=== PATIENT | male | born 1940 | race Caucasian/White ===

== ENCOUNTER 2018-09-27 09:42 | Emergency (ER) | payer MEDICARE, OTHER, SELFPAY ==
--- NOTE | 2018-09-27 09:44 | ED.GENADULT ---
HPI - General Adult General Chief complaint: Upper Respiratory Symptoms Stated complaint: ACHEY,FEVER Time Seen by Provider: 09/27/18 09:43 Source: patient Mode of arrival: ambulatory Limitations: no limitations History of Present Illness HPI narrative: [age] year male here for evaluation of 3-4 days of body aches and fevers. Denies any cough. No rashes. He did get his flu shot last . He is a insulin-dependent type 2 diabetic and states that his blood sugars have been a little more elevated (170s) over the past couple days. He states he is taking Tylenol at home which does bring his temperature down but it comes back up again. He states he did have shakes on Thursday. No headache. No abdominal pain. No urinary symptoms. No history of urinary tract infection. States he does get bronchitis on a regular basis. Related Data Home Medications Medication Instructions Recorded Confirmed fexofenadine 180 mg PO Q DAY #0 12/08/12 09/27/18 losartan 100 mg PO QDAY #0 12/08/12 09/27/18 simvastatin [Zocor] 40 mg PO HS #0 12/08/12 09/27/18 warfarin [Coumadin] See Label Instructions .ROUTE 12/08/12 09/27/18 .COMPLEX #0 carvedilol 3.125 mg tablet 3.125 mg PO BID 06/11/18 09/27/18 Vitamin D3 1 cap PO DAILY 09/27/18 09/27/18 exenatide microspheres [Bydureon] 1 dose SUBCUT DIRECTED 09/27/18 09/27/18 ezetimibe 1 tab PO DAILY 09/27/18 09/27/18 flaxseed oil 1 cap PO DAILY 09/27/18 09/27/18 hydrochlorothiazide 1 tab PO DAILY 09/27/18 09/27/18 insulin aspart U-100 [Novolog 5 units SUBCUT TID 09/27/18 09/27/18 Flexpen U-100 Insulin] insulin glargine [Lantus Solostar 35 units SUBCUT DAILY 09/27/18 09/27/18 U-100 Insulin] liraglutide [Victoza 3-Amando] 1 dose SUBCUT DIRECTED 09/27/18 09/27/18 metformin 250 mg PO DAILY 09/27/18 09/27/18 minocycline 1 cap PO BID 09/27/18 09/27/18 mupirocin 1 applic TOPICAL DIRECTED 09/27/18 09/27/18 ropinirole 1 tab PO DAILY 09/27/18 09/27/18 sitagliptin-metformin [Janumet] 2 tab PO DAILY 09/27/18 09/27/18 Allergies Allergy/AdvReac Type Severity Reaction Status Date / Time amoxicillin Allergy Severe swelling Verified 09/27/18 09:48 in mouth Review of Systems Constitutional Reports chills, Reports fatigue, Reports fever(s), Denies headache(s) and Reports malaise ENT Ears, Nose, Mouth, and Throat: Denies headache(s) Cardiovascular Denies chest pain and Denies dyspnea Respiratory Denies cough, Denies dyspnea and Denies wheezing Gastrointestinal Gastrointestinal: Denies abdominal pain, Denies nausea and Denies vomiting Genitourinary Denies dysuria Musculoskeletal Denies myalgias and Denies arthralgias Integumentary/Breasts Denies lesions and Denies rash Neurologic Denies headache(s) Endocrine Reports fatigue Hematologic/Lymphatic Denies easy bleeding and Denies easy bruising Allergic/Immunologic Denies urticaria and Denies wheezing [facility] Medical History Diabetes (Acute) Hypertension (Acute) Surgical History History of cholecystectomy (Acute) Social History Smoking Status: Never smoker Exam Initial Vital Signs Initial Vital Signs: Vital Signs Temperature 99.5 F 09/27/18 09:46 Pulse Rate 88 09/27/18 09:46 Respiratory Rate 14 09/27/18 09:46 Blood Pressure 152/78 H 09/27/18 09:46 Pulse Oximetry 99 09/27/18 09:46 Const General: cooperative, healthy appearing, comfortable, well developed, well groomed and No acute distress Orientation: alert, awake and oriented x3 HENMT Head: normal to inspection and normocephalic Ears: right TM abnormal (EAC impacted by cerumen) and TM normal on the left Nose: external nose normal Face and sinus: normal facial exam Mouth: oral mucosae normal Eyes Pupils: PERRL Resp Effort & Inspection: normal respiratory effort Auscultation: clear to auscultation bilaterally Cardio Rate: regular rate Rhythm: regular rhythm Pulses: radial pulses present GI Inspection: non-distended Palpation: soft, No firm and No tender Skin Lesions: no lesions Rashes: other (Patient with a fine red rash on his upper chest and back) Neuro General: alert, awake and oriented x3 Cognition: normal cognition Speech: speech normal Extrem General: normal to inspection and capillary refill normal Psych Appearance: grossly normal and well kempt Course Orders Ordered: ED Orders 09/27/18 10:00 FLU A and B [Influenza A and B by PCR Rapid] Stat Vital Signs - 8 hr 09/27/18 09:46 Temperature 99.5 F Pulse Rate 88 Respiratory Rate 14 Blood Pressure 152/78 H Pulse Oximetry 99 Medical Decision Making Lab Data Lab results reviewed: Yes I reviewed the patient's lab results. Lab Results 09/27/18 Range/Units 10:00 Influenza A & B (PCR) Negative (Negative) MDM Narrative Medical decision making narrative: Patient has clear lung exam today no cough. Will hold on a chest x-ray as I felt that clinically of pneumonia is unlikely. His flu was negative. He has no abdominal pain concern for intra-abdominal pathology. He is a male has never had a history of urinary tract infections and does not have any dysuria so I feel UTI is on likely. He has no findings on his skin exam concerning for cellulitis. Has no other symptoms concerning for meningitis. I do suspect that this is a viral illness. I discussed with him the use of antipyretics to include acetaminophen/Motrin. Patient was given return precautions. He expressed understanding and agreement with plan. Discharge Plan Departure Patient Disposition: Home Clinical Impression: Fever Instructions: DI for Fever (Symptom) -- Adult, Acetaminophen Activity Restrictions/Additional Instructions: Continue to take the acetaminophen/Tylenol and/or Motrin/ibuprofen like we discussed. Increase your fluid intake. Continue all of your medications as directed. Return to the emergency department for any new or worsening symptoms Prescriptions: No Action carvedilol 3.125 mg tablet 3.125 mg PO BID RF: 0 warfarin [Coumadin] 5 MG tablet See Label Instructions .ROUTE .COMPLEX Qty: 0 RF: 0 simvastatin [Zocor] 40 MG tablet 40 mg PO HS Qty: 0 RF: 0 losartan 50 MG tablet 100 mg PO QDAY Qty: 0 RF: 0 fexofenadine 180 MG tablet 180 mg PO Q DAY Qty: 0 RF: 0 hydrochlorothiazide 25 mg tablet 1 tab PO DAILY RF: 0 ezetimibe 10 mg tablet 1 tab PO DAILY RF: 0 insulin glargine [Lantus Solostar U-100 Insulin] 100 unit/mL (3 mL) insulin pen 35 units subcut DAILY RF: 0 liraglutide [Victoza 3-Amando] 0.6 mg/0.1 mL (18 mg/3 mL) pen injector 1 dose subcut DIRECTED RF: 0 metformin 500 mg tablet 250 mg PO DAILY RF: 0 minocycline 100 mg capsule 1 cap PO BID RF: 0 ropinirole 0.25 mg tablet 1 tab PO DAILY RF: 0 mupirocin 2 % ointment 1 applic Topical DIRECTED RF: 0 sitagliptin-metformin [Janumet] 50-500 mg tablet 2 tab PO DAILY RF: 0 insulin aspart U-100 [Novolog Flexpen U-100 Insulin] 100 unit/mL Insulin Pen 5 units subcut TID RF: 0 flaxseed oil 1,000 mg Capsule 1 cap PO DAILY RF: 0 exenatide microspheres [Bydureon] 2 mg Suspension,Extended Rel Recon 1 dose subcut DIRECTED RF: 0 Vitamin D3 1 cap PO DAILY RF: 0
[2018-09-27 09:46] VITALS: BP 152/78; PULSE 88; RESP 14; TEMP 37.5; O2SAT 99
--- NOTE | 2018-09-27 10:04 | PC.NURSE ---
pt reports, left arm , s/p flu 6 days ago, developed fever for the last 3 days, had tylenol scow captain 1 hour ago. on arrival denies any discomfort, denies chest pain,shortness of breath, uri sxs, utis sxs. here due to fever and during the exam, noted red rash neck,shoulder,back,abdomin. denies pruritus. skin diaphoretic. left arm injection sites wnl.
[2018-09-27 10:28] LABS: Influenza A and B by PCR Rapid Negative (Negative)
[2018-09-27 10:56] VITALS: BP 124/76; PULSE 85; RESP 18
== END 2018-09-27 10:57 | disposition home or self-care (01) ==
PROVIDERS: Emergency Provider Emergency Medicine; Family Provider Internal Medicine; PCP Internal Medicine
DX: R50.9 Fever, unspecified (principal)
CPT/HCPCS: 87400; 99282; 99283

== ENCOUNTER → 2022-09-15 10:09 | Outpatient (CLI) | payer MEDICARE, OTHER, SELFPAY | PROVIDERS: Family Provider Internal Medicine; PCP Internal Medicine; Referring Provider Podiatrist; Visit Provider Family Medicine | DX: E11.621 Type 2 diabetes mellitus with foot ulcer (principal); L08.9 Local infection of the skin and subcutaneous tissue, unspecified; L97.514 Non-pressure chronic ulcer of other part of right foot with necrosis of bone; M86.171 Other acute osteomyelitis, right ankle and foot; E11.40 Type 2 diabetes mellitus with diabetic neuropathy, unspecified; E11.51 Type 2 diabetes mellitus with diabetic peripheral angiopathy without gangrene; Z79.01 Long term (current) use of anticoagulants; Z79.2 Long term (current) use of antibiotics; Z79.84 Long term (current) use of oral hypoglycemic drugs | CPT/HCPCS: 11044; 36415; 80053; 85025; 85651; 86140; 87070; 87075; 87205; 99204; 99214 ==

== ENCOUNTER → 2022-09-15 11:55 | Outpatient (CLI) | payer MEDICARE, OTHER, SELFPAY ==
[2022-09-15 13:18] LABS: Add Manual Diff / Slide Review NO; Basophils Absolute Auto 100 /uL (0-100); Basophils Percent Auto 0.5 % (0-2); Eosinophils Absolute Auto 200 /uL (0-450); Hematocrit 44.6 % (41-53); Hemoglobin 14.8 g/dL (13.5-17.5); Lymphocytes Absolute Auto 1900 /uL (1100-4500); Lymphocytes Percent Auto 19.9 % (25-40); Mean Corpuscular HGB Conc 33.3 % (30-36); Mean Corpuscular Hemoglobin 31.1 PG (26-34); Mean Corpuscular Volume 93.3 fL (80-100); Monocytes Absolute Auto 1000 /uL (0-900); Monocytes Percent Auto 10.4 % (3-14); Neutrophils Absolute Auto 6400 /uL (1500-7000); Neutrophils Percent Auto 67.2 % (50-75); Platelet Count 234 X10^3/uL (150-400); Red Blood Cell Count 4.78 X10^6/uL (4.5-5.9); White Blood Cell Count 9.5 X10^3/uL (4.5-11.0)
[2022-09-15 13:34] LABS: Erythrocyte Sedimentation Rate 31 MM/HR (0-15)
[2022-09-15 14:01] LABS: Alanine Aminotransferase 61 IU/L (<50); Albumin 3.8 g/dL (3.5-5.0); Albumin Globulin Ratio 1.1 (1.0-2.8); Alkaline Phosphatase 77 U/L (38-126); Aspartate Aminotransferase 49 IU/L (17-59); Bilirubin Total 1.2 mg/dL (0.2-1.3); Blood Urea Nitrogen 19 mg/dL (9-20); C-Reactive Protein Quant 0.7 mg/dL (<1.0); Calcium 9.1 mg/dL (8.4-10.2); Carbon Dioxide 26 mmol/L (22-32); Chloride 101 mmol/L (98-107); Estimated Glomerular Filt Rate > 60 mL/min (>60); Globulin 3.6 g/dL (1.7-4.1); Glucose 121 mg/dL (80-110); HEMOLYSIS < 15 (0-50); Potassium 4.5 mmol/L (3.4-5.1); Sodium 137 mmol/L (137-145); Total Protein 7.4 g/dL (6.3-8.2)
== END ==
PROVIDERS: Family Provider Internal Medicine; PCP Internal Medicine; Referring Provider Family Medicine; Visit Provider Family Medicine
DX: E11.621 Type 2 diabetes mellitus with foot ulcer (principal); L08.9 Local infection of the skin and subcutaneous tissue, unspecified
CPT/HCPCS: 36415; 80053; 85025; 85651; 86140; 87070; 87075; 87205

== ENCOUNTER → 2022-09-22 09:10 | Outpatient (CLI) | payer MEDICARE, OTHER, SELFPAY | PROVIDERS: Family Provider Internal Medicine; PCP Internal Medicine; Referring Provider Podiatrist; Visit Provider Family Medicine | DX: E11.621 Type 2 diabetes mellitus with foot ulcer (principal); L97.514 Non-pressure chronic ulcer of other part of right foot with necrosis of bone; M86.171 Other acute osteomyelitis, right ankle and foot; E11.40 Type 2 diabetes mellitus with diabetic neuropathy, unspecified; Z79.01 Long term (current) use of anticoagulants; Z79.2 Long term (current) use of antibiotics | CPT/HCPCS: 11042; 99214 ==

== ENCOUNTER → 2022-09-29 09:28 | Outpatient (CLI) | payer MEDICARE, OTHER, SELFPAY | PROVIDERS: Family Provider Internal Medicine; PCP Internal Medicine; Referring Provider Podiatrist; Visit Provider Family Medicine | DX: E11.621 Type 2 diabetes mellitus with foot ulcer (principal); L97.516 Non-pressure chronic ulcer of other part of right foot with bone involvement without evidence of necrosis; E11.40 Type 2 diabetes mellitus with diabetic neuropathy, unspecified; Z79.01 Long term (current) use of anticoagulants; Z79.2 Long term (current) use of antibiotics | CPT/HCPCS: 11042; 99214 ==

== ENCOUNTER → 2022-10-08 14:20 | Outpatient (CLI) | payer MEDICARE, OTHER, SELFPAY | PROVIDERS: Family Provider Internal Medicine; PCP Internal Medicine; Referring Provider Internal Medicine; Visit Provider Family Medicine | DX: E11.621 Type 2 diabetes mellitus with foot ulcer (principal); L08.9 Local infection of the skin and subcutaneous tissue, unspecified; L97.514 Non-pressure chronic ulcer of other part of right foot with necrosis of bone; M86.171 Other acute osteomyelitis, right ankle and foot; Z79.01 Long term (current) use of anticoagulants; Z79.2 Long term (current) use of antibiotics | CPT/HCPCS: 11044; 36415; 80053; 85025; 85651; 86140; 87070; 87075; 87077; 87147; 87176; 87186; 87205; 99214 ==

== ENCOUNTER → 2022-10-08 15:55 | Outpatient (CLI) | payer MEDICARE, OTHER, SELFPAY ==
[2022-10-08 16:46] LABS: Add Manual Diff / Slide Review NO; Basophils Absolute Auto 100 /uL (0-100); Basophils Percent Auto 0.6 % (0-2); Eosinophils Absolute Auto 200 /uL (0-450); Eosinophils Percent Auto 2.1 % (2-4); Hematocrit 44.9 % (41-53); Hemoglobin 15.4 g/dL (13.5-17.5); Lymphocytes Absolute Auto 2200 /uL (1100-4500); Mean Corpuscular HGB Conc 34.2 % (30-36); Mean Corpuscular Hemoglobin 31.7 PG (26-34); Mean Corpuscular Volume 92.6 fL (80-100); Monocytes Absolute Auto 1200 /uL (0-900); Monocytes Percent Auto 12.5 % (3-14); Neutrophils Absolute Auto 6000 /uL (1500-7000); Neutrophils Percent Auto 61.8 % (50-75); Platelet Count 209 X10^3/uL (150-400); Red Blood Cell Count 4.85 X10^6/uL (4.5-5.9); White Blood Cell Count 9.6 X10^3/uL (4.5-11.0)
[2022-10-08 17:05] LABS: Alanine Aminotransferase 31 IU/L (<50); Albumin 4.1 g/dL (3.5-5.0); Albumin Globulin Ratio 1.1 (1.0-2.8); Alkaline Phosphatase 67 U/L (38-126); Aspartate Aminotransferase 31 IU/L (17-59); BUN Creatinine Ratio 25.9 (6-22); Bilirubin Total 1.5 mg/dL (0.2-1.3); Blood Urea Nitrogen 36 mg/dL (9-20); C-Reactive Protein Quant < 0.5 mg/dL (<1.0); Calcium 9.2 mg/dL (8.4-10.2); Carbon Dioxide 28 mmol/L (22-32); Chloride 105 mmol/L (98-107); Estimated Glomerular Filt Rate 51 mL/min (>60); Globulin 3.8 g/dL (1.7-4.1); Glucose 106 mg/dL (80-110); HEMOLYSIS < 15 (0-50); Potassium 4.6 mmol/L (3.4-5.1); Sodium 140 mmol/L (137-145); Total Protein 7.9 g/dL (6.3-8.2)
[2022-10-08 17:48] LABS: Erythrocyte Sedimentation Rate 36 MM/HR (0-15)
== END ==
PROVIDERS: Family Provider Internal Medicine; PCP Internal Medicine; Referring Provider Family Medicine; Visit Provider Family Medicine
DX: E11.621 Type 2 diabetes mellitus with foot ulcer (principal); L08.9 Local infection of the skin and subcutaneous tissue, unspecified
CPT/HCPCS: 36415; 80053; 85025; 85651; 86140

== ENCOUNTER → 2022-10-13 09:12 | Outpatient (CLI) | payer MEDICARE, OTHER, SELFPAY | PROVIDERS: Family Provider Internal Medicine; PCP Internal Medicine; Referring Provider Podiatrist; Visit Provider Plastic Surgery | DX: E11.621 Type 2 diabetes mellitus with foot ulcer (principal); L97.514 Non-pressure chronic ulcer of other part of right foot with necrosis of bone; E11.40 Type 2 diabetes mellitus with diabetic neuropathy, unspecified; M86.171 Other acute osteomyelitis, right ankle and foot; Z79.01 Long term (current) use of anticoagulants; Z79.2 Long term (current) use of antibiotics | CPT/HCPCS: 11042 ==

== ENCOUNTER → 2022-10-14 09:08 | Outpatient (CLI) | payer MEDICARE, OTHER, SELFPAY ==
--- NOTE | 2022-10-14 09:09 | DI.MRI.S_ITS ---
PROCEDURE: MR FOOT RT WO/W CON INDICATIONS: Evaluate for osteomyelitis of right 3rd toe TECHNIQUE: Noncontrast coronal T1 spin echo and STIR, sagittal T1 spin echo with fat saturation and STIR, axial T1 spin echo and T2 fast spin echo with fat saturation. After the administration of contrast, axial/sagittal/coronal T1 spin echo with fat saturation through the right foot. COMPARISON: None. FINDINGS: Image quality: Excellent. Bones: There is marrow edema involving 3rd distal phalanx with subtle erosive changes involving 3rd distal phalangeal tuft. No definite contrast enhancement is seen in 3rd distal phalanx. No area of abnormal intraosseous enhancement is seen. No other area of marrow edema or bony erosion. No fracture or dislocation. 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 [id number] osteoarthritic changes throughout rest of the midfoot and forefoot are seen. No metatarsal stress fracture. Soft tissues: There is soft tissue swelling and edema surrounding distal portion of 3rd toe all with suggestion of ulceration distally. No discrete drainable abscess collection. Edema is noted in visualized plantar foot muscles without discrete peripherally enhancing intramuscular fluid collection or enhancing mass. Extensor and flexor tendons are grossly intact. IMPRESSION: 1. Suggestion of cellulitis involving distal portion of 3rd toe. No discrete drainable abscess collection. 2. Finding is concerning for osteomyelitis involving 3rd distal phalanx. 3. Osteoarthritic changes throughout midfoot and forefoot most notably at 1st MTP joint with findings concerning for hallux limitus. No acute fracture or dislocation. 4. Suggestion of mild myositis in plantar foot muscles. No intramuscular soft tissue mass or fluid collection. Dictated by: Tonio Acevedo M.D. on 10/14/2022 at 12:23 Approved by: Tonio Acevedo M.D. on 10/14/2022 at 15:20
== END ==
PROVIDERS: Family Provider Internal Medicine; PCP Internal Medicine; Referring Provider Family Medicine; Visit Provider Family Medicine
DX: E11.621 Type 2 diabetes mellitus with foot ulcer (principal); L97.514 Non-pressure chronic ulcer of other part of right foot with necrosis of bone
CPT/HCPCS: 73720; A9579

== ENCOUNTER → 2022-10-20 09:40 | Outpatient (CLI) | payer MEDICARE, OTHER, SELFPAY | PROVIDERS: Family Provider Internal Medicine; PCP Internal Medicine; Referring Provider Internal Medicine; Visit Provider Surgery | DX: E11.621 Type 2 diabetes mellitus with foot ulcer (principal); L97.514 Non-pressure chronic ulcer of other part of right foot with necrosis of bone; M86.171 Other acute osteomyelitis, right ankle and foot; Z79.01 Long term (current) use of anticoagulants; E11.40 Type 2 diabetes mellitus with diabetic neuropathy, unspecified | CPT/HCPCS: 97597; 99212; 99213 ==

== ENCOUNTER → 2022-10-22 12:40 | Outpatient (CLI) | payer MEDICARE, OTHER, SELFPAY | PROVIDERS: Family Provider Internal Medicine; PCP Internal Medicine; Referring Provider Internal Medicine; Visit Provider Surgery | DX: E11.621 Type 2 diabetes mellitus with foot ulcer (principal); L97.514 Non-pressure chronic ulcer of other part of right foot with necrosis of bone; R60.0 Localized edema; L53.9 Erythematous condition, unspecified | CPT/HCPCS: 99212 ==

== ENCOUNTER → 2022-10-27 09:33 | Outpatient (CLI) | payer MEDICARE, OTHER, SELFPAY | PROVIDERS: Family Provider Internal Medicine; PCP Internal Medicine; Referring Provider Podiatrist; Visit Provider Surgery | DX: E11.621 Type 2 diabetes mellitus with foot ulcer (principal); L97.514 Non-pressure chronic ulcer of other part of right foot with necrosis of bone; M86.171 Other acute osteomyelitis, right ankle and foot; E11.40 Type 2 diabetes mellitus with diabetic neuropathy, unspecified; R60.0 Localized edema; L53.9 Erythematous condition, unspecified; Z79.01 Long term (current) use of anticoagulants; Z79.2 Long term (current) use of antibiotics | CPT/HCPCS: 99213 ==

== ENCOUNTER → 2022-10-30 09:31 | Outpatient (CLI) | payer MEDICARE, OTHER, SELFPAY | PROVIDERS: Family Provider Internal Medicine; PCP Internal Medicine; Referring Provider Podiatrist; Visit Provider Surgery | DX: E11.621 Type 2 diabetes mellitus with foot ulcer (principal); L97.514 Non-pressure chronic ulcer of other part of right foot with necrosis of bone; R60.0 Localized edema; L53.9 Erythematous condition, unspecified | CPT/HCPCS: 99213 ==

== ENCOUNTER → 2022-11-03 11:23 | Outpatient (CLI) | payer MEDICARE, OTHER, SELFPAY | PROVIDERS: Family Provider Internal Medicine; PCP Internal Medicine; Referring Provider Podiatrist; Visit Provider Surgery | DX: E11.621 Type 2 diabetes mellitus with foot ulcer (principal); L97.514 Non-pressure chronic ulcer of other part of right foot with necrosis of bone; M86.171 Other acute osteomyelitis, right ankle and foot; E11.40 Type 2 diabetes mellitus with diabetic neuropathy, unspecified; R60.0 Localized edema; R21 Rash and other nonspecific skin eruption; Z79.01 Long term (current) use of anticoagulants; Z79.2 Long term (current) use of antibiotics; L53.9 Erythematous condition, unspecified | CPT/HCPCS: 99213 ==

== ENCOUNTER → 2022-11-06 09:13 | Outpatient (CLI) | payer MEDICARE, OTHER, SELFPAY | PROVIDERS: Family Provider Internal Medicine; PCP Internal Medicine; Referring Provider Podiatrist; Visit Provider Surgery | DX: E11.621 Type 2 diabetes mellitus with foot ulcer (principal); L97.514 Non-pressure chronic ulcer of other part of right foot with necrosis of bone; R60.0 Localized edema; L53.9 Erythematous condition, unspecified | CPT/HCPCS: 99213 ==

== ENCOUNTER → 2022-11-10 11:19 | Outpatient (CLI) | payer MEDICARE, OTHER, SELFPAY | PROVIDERS: Family Provider Internal Medicine; PCP Internal Medicine; Referring Provider Podiatrist; Visit Provider Surgery | DX: E11.621 Type 2 diabetes mellitus with foot ulcer (principal); L97.514 Non-pressure chronic ulcer of other part of right foot with necrosis of bone; M86.171 Other acute osteomyelitis, right ankle and foot; E11.40 Type 2 diabetes mellitus with diabetic neuropathy, unspecified; R60.0 Localized edema | CPT/HCPCS: 97597; 99213 ==

== ENCOUNTER → 2022-11-13 09:22 | Outpatient (CLI) | payer MEDICARE, OTHER, SELFPAY | PROVIDERS: Family Provider Internal Medicine; PCP Internal Medicine; Referring Provider Internal Medicine; Visit Provider Surgery | DX: E11.621 Type 2 diabetes mellitus with foot ulcer (principal); L97.514 Non-pressure chronic ulcer of other part of right foot with necrosis of bone; R60.0 Localized edema | CPT/HCPCS: 99212 ==

== ENCOUNTER → 2022-11-17 08:59 | Outpatient (CLI) | payer MEDICARE, OTHER, SELFPAY | PROVIDERS: Family Provider Internal Medicine; PCP Internal Medicine; Referring Provider Podiatrist; Visit Provider Surgery | DX: E11.621 Type 2 diabetes mellitus with foot ulcer (principal); L97.514 Non-pressure chronic ulcer of other part of right foot with necrosis of bone; M86.171 Other acute osteomyelitis, right ankle and foot; L08.9 Local infection of the skin and subcutaneous tissue, unspecified; E11.42 Type 2 diabetes mellitus with diabetic polyneuropathy; R60.0 Localized edema | CPT/HCPCS: 97597 ==

== ENCOUNTER → 2022-11-20 10:17 | Outpatient (CLI) | payer MEDICARE, OTHER, SELFPAY | PROVIDERS: Family Provider Internal Medicine; PCP Internal Medicine; Referring Provider Podiatrist; Visit Provider Surgery | DX: E11.621 Type 2 diabetes mellitus with foot ulcer (principal); L97.514 Non-pressure chronic ulcer of other part of right foot with necrosis of bone; R60.0 Localized edema | CPT/HCPCS: 99212 ==

== ENCOUNTER → 2022-11-25 09:24 | Outpatient (CLI) | payer MEDICARE, OTHER, SELFPAY | PROVIDERS: Family Provider Internal Medicine; PCP Internal Medicine; Referring Provider Podiatrist; Visit Provider Surgery | DX: E11.621 Type 2 diabetes mellitus with foot ulcer (principal); L97.514 Non-pressure chronic ulcer of other part of right foot with necrosis of bone; R60.0 Localized edema | CPT/HCPCS: 99212 ==

== ENCOUNTER → 2022-11-27 13:20 | Outpatient (CLI) | payer MEDICARE, OTHER, SELFPAY | PROVIDERS: Family Provider Internal Medicine; PCP Internal Medicine; Referring Provider Internal Medicine; Visit Provider Surgery | DX: E11.621 Type 2 diabetes mellitus with foot ulcer (principal); L97.514 Non-pressure chronic ulcer of other part of right foot with necrosis of bone; M86.171 Other acute osteomyelitis, right ankle and foot; Z79.01 Long term (current) use of anticoagulants; Z79.2 Long term (current) use of antibiotics; R94.5 Abnormal results of liver function studies | CPT/HCPCS: 97597; 99213 ==

== ENCOUNTER → 2022-12-02 09:26 | Outpatient (CLI) | payer MEDICARE, OTHER, SELFPAY | PROVIDERS: Family Provider Internal Medicine; PCP Internal Medicine; Referring Provider Podiatrist; Visit Provider Surgery | DX: E11.621 Type 2 diabetes mellitus with foot ulcer (principal); L97.514 Non-pressure chronic ulcer of other part of right foot with necrosis of bone; R60.0 Localized edema | CPT/HCPCS: 99213 ==

== ENCOUNTER → 2022-12-04 09:25 | Outpatient (CLI) | payer MEDICARE, OTHER, SELFPAY | PROVIDERS: Family Provider Internal Medicine; PCP Internal Medicine; Referring Provider Podiatrist; Visit Provider Surgery | DX: E11.621 Type 2 diabetes mellitus with foot ulcer (principal); L97.514 Non-pressure chronic ulcer of other part of right foot with necrosis of bone; Z79.2 Long term (current) use of antibiotics; E11.40 Type 2 diabetes mellitus with diabetic neuropathy, unspecified | CPT/HCPCS: 97597 ==

== ENCOUNTER → 2022-12-08 08:44 | Outpatient (CLI) | payer MEDICARE, OTHER, SELFPAY | PROVIDERS: Family Provider Internal Medicine; PCP Internal Medicine; Referring Provider Internal Medicine; Visit Provider Surgery | DX: E11.621 Type 2 diabetes mellitus with foot ulcer (principal); L97.514 Non-pressure chronic ulcer of other part of right foot with necrosis of bone; R60.0 Localized edema | CPT/HCPCS: 99212 ==

== ENCOUNTER → 2022-12-11 09:42 | Outpatient (CLI) | payer MEDICARE, OTHER, SELFPAY | PROVIDERS: Family Provider Internal Medicine; PCP Internal Medicine; Referring Provider Podiatrist; Visit Provider Surgery | DX: E11.621 Type 2 diabetes mellitus with foot ulcer (principal); L97.514 Non-pressure chronic ulcer of other part of right foot with necrosis of bone; M86.171 Other acute osteomyelitis, right ankle and foot; E11.40 Type 2 diabetes mellitus with diabetic neuropathy, unspecified; R60.0 Localized edema | CPT/HCPCS: 11042 ==

== ENCOUNTER → 2022-12-12 14:16 | Outpatient (CLI) | payer MEDICARE, OTHER, SELFPAY | PROVIDERS: Family Provider Internal Medicine; PCP Internal Medicine; Referring Provider Internal Medicine; Visit Provider Nurse Practitioner Family | DX: E11.621 Type 2 diabetes mellitus with foot ulcer (principal); L97.514 Non-pressure chronic ulcer of other part of right foot with necrosis of bone; M86.171 Other acute osteomyelitis, right ankle and foot; Z79.01 Long term (current) use of anticoagulants; Z79.2 Long term (current) use of antibiotics; R94.5 Abnormal results of liver function studies | CPT/HCPCS: 99183; G0277 ==

== ENCOUNTER → 2022-12-15 08:47 | Outpatient (CLI) | payer MEDICARE, OTHER, SELFPAY | PROVIDERS: Family Provider Internal Medicine; PCP Internal Medicine; Referring Provider Podiatrist; Visit Provider Surgery | DX: E11.621 Type 2 diabetes mellitus with foot ulcer (principal); L97.514 Non-pressure chronic ulcer of other part of right foot with necrosis of bone; M86.171 Other acute osteomyelitis, right ankle and foot; Z79.2 Long term (current) use of antibiotics; Z79.01 Long term (current) use of anticoagulants; R94.5 Abnormal results of liver function studies; R60.0 Localized edema | CPT/HCPCS: 99183; 99213; G0277 ==

== ENCOUNTER → 2022-12-16 13:34 | Outpatient (CLI) | payer MEDICARE, OTHER, SELFPAY | PROVIDERS: Family Provider Internal Medicine; PCP Internal Medicine; Referring Provider Podiatrist; Visit Provider Surgery | DX: E11.621 Type 2 diabetes mellitus with foot ulcer (principal); L97.514 Non-pressure chronic ulcer of other part of right foot with necrosis of bone; M86.171 Other acute osteomyelitis, right ankle and foot; Z79.01 Long term (current) use of anticoagulants; Z79.2 Long term (current) use of antibiotics; R94.5 Abnormal results of liver function studies | CPT/HCPCS: 99183; G0277 ==

== ENCOUNTER → 2022-12-17 15:19 | Outpatient (CLI) | payer MEDICARE, OTHER, SELFPAY | PROVIDERS: Family Provider Internal Medicine; PCP Internal Medicine; Referring Provider Internal Medicine; Visit Provider Surgery | DX: E11.621 Type 2 diabetes mellitus with foot ulcer (principal); L97.514 Non-pressure chronic ulcer of other part of right foot with necrosis of bone; M86.171 Other acute osteomyelitis, right ankle and foot; Z79.01 Long term (current) use of anticoagulants; Z79.2 Long term (current) use of antibiotics; R94.5 Abnormal results of liver function studies | CPT/HCPCS: 99183; G0277 ==

== ENCOUNTER → 2022-12-18 08:54 | Outpatient (CLI) | payer MEDICARE, OTHER, SELFPAY | PROVIDERS: Family Provider Internal Medicine; PCP Internal Medicine; Referring Provider Podiatrist; Visit Provider Surgery | DX: E11.621 Type 2 diabetes mellitus with foot ulcer (principal); L97.514 Non-pressure chronic ulcer of other part of right foot with necrosis of bone; M86.171 Other acute osteomyelitis, right ankle and foot; Z79.01 Long term (current) use of anticoagulants; Z79.2 Long term (current) use of antibiotics; R94.5 Abnormal results of liver function studies; R60.0 Localized edema; E11.40 Type 2 diabetes mellitus with diabetic neuropathy, unspecified | CPT/HCPCS: 97597; 99183; G0277 ==

== ENCOUNTER → 2022-12-19 13:16 | Outpatient (CLI) | payer MEDICARE, OTHER, SELFPAY | PROVIDERS: Family Provider Internal Medicine; PCP Internal Medicine; Referring Provider Internal Medicine; Visit Provider Nurse Practitioner Family | DX: E11.621 Type 2 diabetes mellitus with foot ulcer (principal); L97.514 Non-pressure chronic ulcer of other part of right foot with necrosis of bone; M86.171 Other acute osteomyelitis, right ankle and foot; Z79.01 Long term (current) use of anticoagulants; Z79.2 Long term (current) use of antibiotics; R94.5 Abnormal results of liver function studies | CPT/HCPCS: 99183; G0277 ==

== ENCOUNTER → 2022-12-22 10:00 | Outpatient (CLI) | payer MEDICARE, OTHER, SELFPAY | PROVIDERS: Family Provider Internal Medicine; PCP Internal Medicine; Referring Provider Internal Medicine; Visit Provider Surgery | DX: E11.621 Type 2 diabetes mellitus with foot ulcer (principal); L97.514 Non-pressure chronic ulcer of other part of right foot with necrosis of bone; M86.171 Other acute osteomyelitis, right ankle and foot; Z79.01 Long term (current) use of anticoagulants; Z79.2 Long term (current) use of antibiotics; R94.5 Abnormal results of liver function studies | CPT/HCPCS: 99183; 99213; G0277 ==

== ENCOUNTER → 2022-12-23 11:03 | Outpatient (CLI) | payer MEDICARE, OTHER, SELFPAY | PROVIDERS: Family Provider Internal Medicine; PCP Internal Medicine; Referring Provider Podiatrist; Visit Provider Surgery | DX: E11.621 Type 2 diabetes mellitus with foot ulcer (principal); L97.514 Non-pressure chronic ulcer of other part of right foot with necrosis of bone; M86.171 Other acute osteomyelitis, right ankle and foot; Z79.01 Long term (current) use of anticoagulants; Z79.2 Long term (current) use of antibiotics; R94.5 Abnormal results of liver function studies | CPT/HCPCS: 99183; G0277 ==

== ENCOUNTER → 2022-12-24 10:26 | Outpatient (CLI) | payer MEDICARE, OTHER, SELFPAY | PROVIDERS: Family Provider Internal Medicine; PCP Internal Medicine; Referring Provider Podiatrist; Visit Provider Surgery | DX: E11.621 Type 2 diabetes mellitus with foot ulcer (principal); L97.514 Non-pressure chronic ulcer of other part of right foot with necrosis of bone; M86.171 Other acute osteomyelitis, right ankle and foot; Z79.01 Long term (current) use of anticoagulants; Z79.2 Long term (current) use of antibiotics; R94.5 Abnormal results of liver function studies | CPT/HCPCS: 99183; G0277 ==

== ENCOUNTER → 2022-12-25 08:44 | Outpatient (CLI) | payer MEDICARE, OTHER, SELFPAY | PROVIDERS: Family Provider Internal Medicine; PCP Internal Medicine; Referring Provider Internal Medicine; Visit Provider Surgery | DX: E11.621 Type 2 diabetes mellitus with foot ulcer (principal); L97.514 Non-pressure chronic ulcer of other part of right foot with necrosis of bone; M86.171 Other acute osteomyelitis, right ankle and foot; Z79.01 Long term (current) use of anticoagulants; Z79.2 Long term (current) use of antibiotics; E11.40 Type 2 diabetes mellitus with diabetic neuropathy, unspecified | CPT/HCPCS: 99213 ==

== ENCOUNTER → 2022-12-26 11:28 | Outpatient (CLI) | payer MEDICARE, OTHER, SELFPAY | PROVIDERS: Family Provider Internal Medicine; PCP Internal Medicine; Referring Provider Podiatrist; Visit Provider Nurse Practitioner Family | DX: E11.621 Type 2 diabetes mellitus with foot ulcer (principal); L97.514 Non-pressure chronic ulcer of other part of right foot with necrosis of bone; M86.171 Other acute osteomyelitis, right ankle and foot; Z79.01 Long term (current) use of anticoagulants; Z79.2 Long term (current) use of antibiotics; R94.5 Abnormal results of liver function studies | CPT/HCPCS: 99183; G0277 ==

== ENCOUNTER → 2022-12-29 08:42 | Outpatient (CLI) | payer MEDICARE, OTHER, SELFPAY | PROVIDERS: Family Provider Internal Medicine; PCP Internal Medicine; Referring Provider Internal Medicine; Visit Provider Surgery | DX: E11.621 Type 2 diabetes mellitus with foot ulcer (principal); L97.511 Non-pressure chronic ulcer of other part of right foot limited to breakdown of skin; L97.514 Non-pressure chronic ulcer of other part of right foot with necrosis of bone; M86.171 Other acute osteomyelitis, right ankle and foot; Z79.01 Long term (current) use of anticoagulants; Z79.2 Long term (current) use of antibiotics; R94.5 Abnormal results of liver function studies | CPT/HCPCS: 99183; 99213; G0277 ==

== ENCOUNTER → 2022-12-30 10:39 | Outpatient (CLI) | payer MEDICARE, OTHER, SELFPAY | PROVIDERS: Family Provider Internal Medicine; PCP Internal Medicine; Referring Provider Internal Medicine; Visit Provider Surgery | DX: E11.621 Type 2 diabetes mellitus with foot ulcer (principal); L97.514 Non-pressure chronic ulcer of other part of right foot with necrosis of bone; M86.171 Other acute osteomyelitis, right ankle and foot; Z79.01 Long term (current) use of anticoagulants; Z79.2 Long term (current) use of antibiotics; R94.5 Abnormal results of liver function studies | CPT/HCPCS: 99183; G0277 ==

== ENCOUNTER → 2022-12-31 13:18 | Outpatient (CLI) | payer MEDICARE, OTHER, SELFPAY | PROVIDERS: Family Provider Internal Medicine; PCP Internal Medicine; Referring Provider Internal Medicine; Visit Provider Surgery | DX: E11.621 Type 2 diabetes mellitus with foot ulcer (principal); L97.514 Non-pressure chronic ulcer of other part of right foot with necrosis of bone; M86.171 Other acute osteomyelitis, right ankle and foot; Z79.01 Long term (current) use of anticoagulants; Z79.2 Long term (current) use of antibiotics; R94.5 Abnormal results of liver function studies | CPT/HCPCS: 99183; G0277 ==

== ENCOUNTER → 2023-01-01 08:44 | Outpatient (CLI) | payer MEDICARE, OTHER, SELFPAY | PROVIDERS: Family Provider Internal Medicine; PCP Internal Medicine; Referring Provider Internal Medicine; Visit Provider Surgery | DX: E11.621 Type 2 diabetes mellitus with foot ulcer (principal); L97.514 Non-pressure chronic ulcer of other part of right foot with necrosis of bone; M86.171 Other acute osteomyelitis, right ankle and foot; Z79.01 Long term (current) use of anticoagulants; Z79.2 Long term (current) use of antibiotics; R94.5 Abnormal results of liver function studies | CPT/HCPCS: 99183; 99211; G0277 ==

== ENCOUNTER → 2023-01-02 13:00 | Outpatient (CLI) | payer MEDICARE, OTHER, SELFPAY | PROVIDERS: Family Provider Internal Medicine; PCP Internal Medicine; Referring Provider Internal Medicine; Visit Provider Nurse Practitioner Family | DX: E11.621 Type 2 diabetes mellitus with foot ulcer (principal); L97.514 Non-pressure chronic ulcer of other part of right foot with necrosis of bone; M86.171 Other acute osteomyelitis, right ankle and foot; Z79.01 Long term (current) use of anticoagulants; Z79.2 Long term (current) use of antibiotics; R94.5 Abnormal results of liver function studies | CPT/HCPCS: 99183; G0277 ==

== ENCOUNTER → 2023-01-05 08:33 | Outpatient (CLI) | payer MEDICARE, OTHER, SELFPAY | PROVIDERS: Family Provider Internal Medicine; PCP Internal Medicine; Referring Provider Internal Medicine; Visit Provider Surgery | DX: E11.621 Type 2 diabetes mellitus with foot ulcer (principal); L97.514 Non-pressure chronic ulcer of other part of right foot with necrosis of bone; M86.171 Other acute osteomyelitis, right ankle and foot; Z79.01 Long term (current) use of anticoagulants; Z79.2 Long term (current) use of antibiotics; R94.5 Abnormal results of liver function studies | CPT/HCPCS: 99183; G0277 ==

== ENCOUNTER → 2023-01-06 10:17 | Outpatient (CLI) | payer MEDICARE, OTHER, SELFPAY | PROVIDERS: Family Provider Internal Medicine; PCP Internal Medicine; Referring Provider Internal Medicine; Visit Provider Surgery | DX: E11.621 Type 2 diabetes mellitus with foot ulcer (principal); L97.514 Non-pressure chronic ulcer of other part of right foot with necrosis of bone; M86.171 Other acute osteomyelitis, right ankle and foot; Z79.01 Long term (current) use of anticoagulants; Z79.2 Long term (current) use of antibiotics; R94.5 Abnormal results of liver function studies | CPT/HCPCS: 99183; G0277 ==

== ENCOUNTER → 2023-01-08 11:19 | Outpatient (CLI) | payer MEDICARE, OTHER, SELFPAY | PROVIDERS: Family Provider Internal Medicine; PCP Internal Medicine; Referring Provider Internal Medicine; Visit Provider Surgery | DX: E11.621 Type 2 diabetes mellitus with foot ulcer (principal); L97.514 Non-pressure chronic ulcer of other part of right foot with necrosis of bone; M86.171 Other acute osteomyelitis, right ankle and foot; Z79.01 Long term (current) use of anticoagulants; Z79.2 Long term (current) use of antibiotics; R94.5 Abnormal results of liver function studies | CPT/HCPCS: 99183; G0277 ==

== ENCOUNTER → 2023-01-12 08:43 | Outpatient (CLI) | payer MEDICARE, OTHER, SELFPAY | PROVIDERS: Family Provider Internal Medicine; PCP Internal Medicine; Referring Provider Internal Medicine; Visit Provider Surgery | DX: E11.621 Type 2 diabetes mellitus with foot ulcer (principal); L97.514 Non-pressure chronic ulcer of other part of right foot with necrosis of bone; M86.171 Other acute osteomyelitis, right ankle and foot; Z79.01 Long term (current) use of anticoagulants; Z79.2 Long term (current) use of antibiotics; R94.5 Abnormal results of liver function studies | CPT/HCPCS: 99183; G0277 ==

== ENCOUNTER → 2023-01-13 15:55 | Outpatient (CLI) | payer MEDICARE, OTHER, SELFPAY | PROVIDERS: Family Provider Internal Medicine; PCP Internal Medicine; Referring Provider Internal Medicine; Visit Provider Surgery | DX: E11.621 Type 2 diabetes mellitus with foot ulcer (principal); L97.514 Non-pressure chronic ulcer of other part of right foot with necrosis of bone; M86.171 Other acute osteomyelitis, right ankle and foot; Z79.01 Long term (current) use of anticoagulants; Z79.2 Long term (current) use of antibiotics; R94.5 Abnormal results of liver function studies | CPT/HCPCS: 99183; G0277 ==

== ENCOUNTER → 2023-01-14 08:54 | Outpatient (CLI) | payer MEDICARE, OTHER, SELFPAY | PROVIDERS: Family Provider Internal Medicine; PCP Internal Medicine; Referring Provider Internal Medicine; Visit Provider Surgery | DX: E11.621 Type 2 diabetes mellitus with foot ulcer (principal); L97.514 Non-pressure chronic ulcer of other part of right foot with necrosis of bone; M86.171 Other acute osteomyelitis, right ankle and foot; Z79.01 Long term (current) use of anticoagulants; Z79.2 Long term (current) use of antibiotics; R94.5 Abnormal results of liver function studies | CPT/HCPCS: 99183; G0277 ==

== ENCOUNTER → 2023-01-15 09:54 | Outpatient (CLI) | payer MEDICARE, OTHER, SELFPAY | PROVIDERS: Family Provider Internal Medicine; PCP Internal Medicine; Referring Provider Internal Medicine; Visit Provider Surgery | DX: E11.621 Type 2 diabetes mellitus with foot ulcer (principal); L97.514 Non-pressure chronic ulcer of other part of right foot with necrosis of bone; M86.171 Other acute osteomyelitis, right ankle and foot; Z79.01 Long term (current) use of anticoagulants; Z79.2 Long term (current) use of antibiotics; R94.5 Abnormal results of liver function studies | CPT/HCPCS: 99183; G0277 ==

== ENCOUNTER → 2023-01-16 11:54 | Outpatient (CLI) | payer MEDICARE, OTHER, SELFPAY | PROVIDERS: Family Provider Internal Medicine; PCP Internal Medicine; Referring Provider Internal Medicine; Visit Provider Nurse Practitioner Family | DX: E11.621 Type 2 diabetes mellitus with foot ulcer (principal); L97.514 Non-pressure chronic ulcer of other part of right foot with necrosis of bone; M86.171 Other acute osteomyelitis, right ankle and foot; Z79.01 Long term (current) use of anticoagulants; Z79.2 Long term (current) use of antibiotics; R94.5 Abnormal results of liver function studies | CPT/HCPCS: 99183; G0277 ==

== ENCOUNTER → 2023-01-19 08:45 | Outpatient (CLI) | payer MEDICARE, OTHER, SELFPAY | PROVIDERS: Family Provider Internal Medicine; PCP Internal Medicine; Referring Provider Internal Medicine; Visit Provider Surgery | DX: E11.621 Type 2 diabetes mellitus with foot ulcer (principal); L97.514 Non-pressure chronic ulcer of other part of right foot with necrosis of bone; M86.171 Other acute osteomyelitis, right ankle and foot; Z79.01 Long term (current) use of anticoagulants; Z79.2 Long term (current) use of antibiotics; R94.5 Abnormal results of liver function studies | CPT/HCPCS: 99183; G0277 ==

== ENCOUNTER → 2023-01-20 08:40 | Outpatient (CLI) | payer MEDICARE, OTHER, SELFPAY | PROVIDERS: Family Provider Internal Medicine; PCP Internal Medicine; Referring Provider Internal Medicine; Visit Provider Surgery | DX: E11.621 Type 2 diabetes mellitus with foot ulcer (principal); L97.514 Non-pressure chronic ulcer of other part of right foot with necrosis of bone; M86.171 Other acute osteomyelitis, right ankle and foot; Z79.01 Long term (current) use of anticoagulants; Z79.2 Long term (current) use of antibiotics; R94.5 Abnormal results of liver function studies | CPT/HCPCS: 99183; G0277 ==

== ENCOUNTER → 2023-01-21 08:49 | Outpatient (CLI) | payer MEDICARE, OTHER, SELFPAY | PROVIDERS: Family Provider Internal Medicine; PCP Internal Medicine; Referring Provider Internal Medicine; Visit Provider Surgery | DX: E11.621 Type 2 diabetes mellitus with foot ulcer (principal); L97.514 Non-pressure chronic ulcer of other part of right foot with necrosis of bone; M86.171 Other acute osteomyelitis, right ankle and foot; Z79.01 Long term (current) use of anticoagulants; Z79.2 Long term (current) use of antibiotics; R94.5 Abnormal results of liver function studies | CPT/HCPCS: 99183; 99212; 99213; G0277 ==

== ENCOUNTER → 2023-01-22 14:38 | Outpatient (CLI) | payer MEDICARE, OTHER, SELFPAY | PROVIDERS: Family Provider Internal Medicine; PCP Internal Medicine; Referring Provider Internal Medicine; Visit Provider Surgery | DX: E11.621 Type 2 diabetes mellitus with foot ulcer (principal); L97.514 Non-pressure chronic ulcer of other part of right foot with necrosis of bone; M86.171 Other acute osteomyelitis, right ankle and foot; Z79.01 Long term (current) use of anticoagulants; Z79.2 Long term (current) use of antibiotics; R94.5 Abnormal results of liver function studies | CPT/HCPCS: 99183; G0277 ==

== ENCOUNTER → 2023-01-23 09:01 | Outpatient (CLI) | payer MEDICARE, OTHER, SELFPAY | PROVIDERS: Family Provider Internal Medicine; PCP Internal Medicine; Referring Provider Internal Medicine; Visit Provider Nurse Practitioner Family | DX: E11.621 Type 2 diabetes mellitus with foot ulcer (principal); L97.514 Non-pressure chronic ulcer of other part of right foot with necrosis of bone; M86.171 Other acute osteomyelitis, right ankle and foot; Z79.01 Long term (current) use of anticoagulants; Z79.2 Long term (current) use of antibiotics; R94.5 Abnormal results of liver function studies | CPT/HCPCS: 99183; G0277 ==

== ENCOUNTER → 2023-01-26 08:44 | Outpatient (CLI) | payer MEDICARE, OTHER, SELFPAY | PROVIDERS: Family Provider Internal Medicine; PCP Internal Medicine; Referring Provider Internal Medicine; Visit Provider Surgery | DX: E11.621 Type 2 diabetes mellitus with foot ulcer (principal); L97.514 Non-pressure chronic ulcer of other part of right foot with necrosis of bone; Z79.01 Long term (current) use of anticoagulants; Z79.2 Long term (current) use of antibiotics; R94.5 Abnormal results of liver function studies; M86.171 Other acute osteomyelitis, right ankle and foot | CPT/HCPCS: 87070; 87075; 87205; 99183; G0277 ==

== ENCOUNTER → 2023-01-30 09:29 | Outpatient (CLI) | payer MEDICARE, OTHER, SELFPAY | PROVIDERS: Family Provider Internal Medicine; PCP Internal Medicine; Referring Provider Podiatrist; Visit Provider Surgery | DX: E11.621 Type 2 diabetes mellitus with foot ulcer (principal); L97.511 Non-pressure chronic ulcer of other part of right foot limited to breakdown of skin; E11.40 Type 2 diabetes mellitus with diabetic neuropathy, unspecified; E11.51 Type 2 diabetes mellitus with diabetic peripheral angiopathy without gangrene; Z79.01 Long term (current) use of anticoagulants | CPT/HCPCS: 99213 ==

== ENCOUNTER → 2023-02-04 10:12 | Outpatient (CLI) | payer MEDICARE, OTHER, SELFPAY | PROVIDERS: Family Provider Internal Medicine; PCP Internal Medicine; Referring Provider Internal Medicine; Visit Provider Surgery | DX: E11.621 Type 2 diabetes mellitus with foot ulcer (principal); Z79.01 Long term (current) use of anticoagulants | CPT/HCPCS: 97597; 99212 ==

== ENCOUNTER → 2023-03-10 08:51 | Outpatient (CLI) | payer MEDICARE, OTHER, SELFPAY | PROVIDERS: Family Provider Internal Medicine; PCP Internal Medicine; Referring Provider Podiatrist; Visit Provider Surgery | DX: E11.40 Type 2 diabetes mellitus with diabetic neuropathy, unspecified (principal); Z86.31 Personal history of diabetic foot ulcer | CPT/HCPCS: 99213 ==

== ENCOUNTER → 2023-06-30 09:56 | Outpatient (CLI) | payer MEDICARE, OTHER, SELFPAY ==
[2023-06-30 11:29] LABS: Albumin 3.9 g/dL (3.5-5.0); BUN Creatinine Ratio 15.4 (6-22); Blood Urea Nitrogen 28 mg/dL (9-20); Calcium 9.2 mg/dL (8.4-10.2); Carbon Dioxide 25 mmol/L (22-32); Chloride 103 mmol/L (98-107); Cholesterol 102 mg/dL (140-199); Estimated Glomerular Filt Rate 37 mL/min (>60); Glucose 109 mg/dL (80-110); HDL Cholesterol 39 mg/dL (40-60); HEMOLYSIS < 15 (0-50); LDL Cholesterol Calculated 42 mg/dL (<100); Phosphorous 3.7 mg/dL (2.3-3.7); Sodium 135 mmol/L (137-145); Triglycerides 107 mg/dL (35-150)
[2023-06-30 16:49] LABS: Creatinine Urine Random 43.6 mg/dL
[2023-06-30 16:50] LABS: Microalbumin Urine Random 0.7 mg/dL (0-1.6)
== END ==
PROVIDERS: Family Provider Internal Medicine; PCP Internal Medicine; Referring Provider Student in an Organized Health Care Education/Training Program; Visit Provider Student in an Organized Health Care Education/Training Program
DX: E11.9 Type 2 diabetes mellitus without complications (principal); Z79.4 Long term (current) use of insulin
CPT/HCPCS: 36415; 80061; 80069; 82043; 82570

== ENCOUNTER → 2024-01-12 09:34 | Outpatient (CLI) | payer MEDICARE, OTHER, SELFPAY ==
[2024-01-12 11:32] LABS: Creatinine Urine Random 68.5 mg/dL
[2024-01-12 11:34] LABS: Microalbumi Creatinin Ratio Ur 18.9 ug/mg CR (<30); Microalbumin Urine Random 1.3 mg/dL (0-1.6)
[2024-01-12 11:41] LABS: Albumin 3.8 g/dL (3.5-5.0); BUN Creatinine Ratio 18.9 (6-22); Blood Urea Nitrogen 30 mg/dL (9-20); Carbon Dioxide 25 mmol/L (22-32); Chloride 103 mmol/L (98-107); Cholesterol 107 mg/dL (140-199); Estimated Glomerular Filt Rate 43 mL/min (>60); Glucose 145 mg/dL (80-110); HDL Cholesterol 40 mg/dL (40-60); HEMOLYSIS < 15 (0-50); LDL Cholesterol Calculated 52 mg/dL (<100); Phosphorous 3.7 mg/dL (2.3-3.7); Potassium 4.8 mmol/L (3.4-5.1); Sodium 138 mmol/L (137-145); Triglycerides 75 mg/dL (35-150)
== END ==
PROVIDERS: Family Provider Internal Medicine; PCP Internal Medicine; Referring Provider Student in an Organized Health Care Education/Training Program; Visit Provider Student in an Organized Health Care Education/Training Program
DX: E11.9 Type 2 diabetes mellitus without complications (principal); Z79.4 Long term (current) use of insulin
CPT/HCPCS: 36415; 80061; 80069; 82043; 82570

== ENCOUNTER → 2024-05-16 10:08 | Outpatient (CLI) | payer MEDICARE, OTHER, SELFPAY ==
--- NOTE | 2024-05-16 10:10 | DI.US.S_ITS ---
PROCEDURE: US EXTREMITY NONVASC LOWER RT INDICATIONS: Scrotal pain TECHNIQUE: Real-time scanning was performed of the right inguinal area, with image documentation. COMPARISON: None. FINDINGS: Ultrasound examination of right inguinal area at patient's reported area of pain shows fascial defect in right inguinal region with small inguinal hernia lateral to the vessels and contains fat only. This does not appears to be fully reducible. IMPRESSION: Partially reducible fat containing small right inguinal hernia. Dictated by: Tonio Acevedo M.D. on 05/17/2024 at 9:56 Approved by: Tonio Acevedo M.D. on 05/17/2024 at 10:01
== END ==
PROVIDERS: Family Provider Internal Medicine; PCP Internal Medicine; Referring Provider Physician Assistant Surgical; Visit Provider Physician Assistant Surgical
DX: N50.82 Scrotal pain (principal); K40.30 Unilateral inguinal hernia, with obstruction, without gangrene, not specified as recurrent; R10.31 Right lower quadrant pain
CPT/HCPCS: 76882

== ENCOUNTER → 2024-10-11 07:17 | Outpatient (CLI) | payer MEDICARE, OTHER, SELFPAY ==
--- NOTE | 2024-10-11 07:57 | EKG_ITS ---
[facility] [address] [place] [address] Test Date: 2024-10-11 Pat Name: Blaine Orosco Department: Room: Gender: Male Gallery Host: : [id number] Requested By: Order Number: [id number] Reading MD: Bry Goldman MD Measurements Intervals [place] Rate: 56 P: FL: QRS: 24 QRSD: 96 T: 20 QT: 432 QTc: 416 Interpretive Statements Atrial fibrillation with slow ventricular response with premature ventricular or aberrantly conducted complexes Nonspecific ST abnormality NO PRIOR TRACING Electronically Signed On 10-11-2024 15:32:53 PST by Bry Goldman MD
[2024-10-11 08:47] LABS: Appearance Urine UA CLEAR; Bilirubin Urine UA NEGATIVE (NEGATIVE); Color Urine UA YELLOW; Glucose Urine UA NEGATIVE (Negative); Ketones Urine UA NEGATIVE (NEGATIVE); Leukocyte Esterase Urine UA NEGATIVE (NEGATIVE); Nitrite Urine UA NEGATIVE (Negative); Occult Blood Urine UA NEGATIVE (Negative); Protein Urine UA NEGATIVE (Negative); Specific Gravity Urine UA 1.025 (1.000-1.035); Urobilinogen Urine UA 0.2 E.U./dL (0.2); pH Urine UA 5.5 (4.5-8.0)
[2024-10-11 08:57] LABS: Add Manual Diff / Slide Review NO; Basophils Absolute Auto 0 /uL (0-100); Basophils Percent Auto 0.5 % (0-2); Eosinophils Absolute Auto 100 /uL (0-450); Eosinophils Percent Auto 1.3 % (2-4); Hematocrit 41.2 % (41-53); Hemoglobin 14.1 g/dL (13.5-17.5); Lymphocytes Absolute Auto 1700 /uL (1100-4500); Lymphocytes Percent Auto 19.1 % (25-40); Mean Corpuscular HGB Conc 34.3 % (30-36); Mean Corpuscular Volume 93.4 fL (80-100); Monocytes Absolute Auto 900 /uL (0-900); Monocytes Percent Auto 10.4 % (3-14); Neutrophils Absolute Auto 6200 /uL (1500-7000); Neutrophils Percent Auto 68.7 % (50-75); Platelet Count 219 X10^3/uL (150-400); Red Blood Cell Count 4.42 X10^6/uL (4.5-5.9); Red Cell Distribution Width 14.5 % (11.6-14.8)
[2024-10-11 09:36] LABS: BUN Creatinine Ratio 22.7 (6-22); Blood Urea Nitrogen 34 mg/dL (9-20); Calcium 8.9 mg/dL (8.4-10.2); Carbon Dioxide 26 mmol/L (22-32); Chloride 105 mmol/L (98-107); Estimated Glomerular Filt Rate 46 mL/min (>60); Glucose 125 mg/dL (80-110); HEMOLYSIS < 15 (0-50); Potassium 4.1 mmol/L (3.4-5.1); Sodium 137 mmol/L (137-145)
[2024-10-11 10:02] LABS: Bacteria Urine None Seen; Culture Indicated Urine Cult Not Indicated; RBC Urine None Seen (0-5/HPF); Squamous Epithelial Cell Urine 0-1 /HPF (0-5/HPF); Urine Volume 10mL (spun); WBC Urine None Seen (0-5/HPF)
== END ==
PROVIDERS: Family Provider Internal Medicine; PCP Internal Medicine; Referring Provider Orthopaedic Surgery; Visit Provider Orthopaedic Surgery
DX: Z01.818 Encounter for other preprocedural examination (principal); R73.9 Hyperglycemia, unspecified; Z01.812 Encounter for preprocedural laboratory examination; N39.0 Urinary tract infection, site not specified
CPT/HCPCS: 36415; 80048; 81001; 83036; 85025; 93005; 93010

== ENCOUNTER 2024-11-03 08:06 | Day surgery (SDC) | payer MEDICARE, OTHER, SELFPAY ==
[2024-10-18 12:49] VITALS: BMI 27.4
[2024-11-03] VITALS (13 sets, daily range): BP systolic 103–169; BP diastolic 49–71; PULSE 44–80; RESP 13–20; TEMP 35.7–36.6; O2SAT 96–100; BMI 27.7
--- NOTE | 2024-11-03 | DI.RAD.S_ITS ---
PROCEDURE: XR HIP W PEL IF DONE RT 2V INDICATIONS: total right hip TECHNIQUE: Multiple intraoperative spot fluoroscopic images of the right hip. COMPARISON: [facility], , XR HIP W PEL IF DONE RT 2V, 11/03/2024, 12:59. FINDINGS: Spot fluoroscopic images demonstrate right hip arthroplasty with hardware components in expected positions. IMPRESSION: Fluoroscopy was utilized for intraoperative guidance. Approved by: Moreno Rebolalr M.D. on 11/03/2024 at 20:13
--- NOTE | 2024-11-03 06:00 | DI.RAD.S_ITS ---
PROCEDURE: XR HIP W PEL IF DONE RT 2V INDICATIONS: HERIBERTO TECHNIQUE: AP pelvis and lateral view of the hip acquired. COMPARISON: [facility], CR, XR HIP W PEL IF DONE RT 2V, 11/03/2024, 12:59. FINDINGS: Bones: Patient is status post right hip arthroplasty, with hardware components in expected positions. The hip joint appears congruent. The visualized bony structures appear intact. Soft tissues: Overlying postoperative changes are noted. No suspicious soft tissue densities. IMPRESSION: Expected post-operative appearance of a hip arthroplasty. Dictated by: Gregorio Antoine M.D. on 11/03/2024 at 14:58 Approved by: Gregorio Antoine M.D. on 11/03/2024 at 14:58
[2024-11-03] MEDS: VANCOMYCIN 1,000 MG/200 ML PIGGYBACK 200 MG IV (10:24)
--- NOTE | 2024-11-03 10:55 | PM.PREOP ---
Pre-operative Note Interval Note History & Physical reviewed/Exam performed by Physician: Yes Changes to H&P: No
--- NOTE | 2024-11-03 10:55 | PM.OP.1 ---
Operative Date/Time/Diagnoses Date of procedure: 11/03/24 Time of procedure: 12:00 Pre-op diagnosis: Right hip OA Post-op diagnosis: same Procedure & Clinicians Procedure: Right total hip arthroplasty anterior approach Same procedure as scheduled: Yes Indications: The patient has had progressively worsening right hip pain with radiographic changes consistent with arthritis. Non-operative management has failed and the patient has requested total hip replacement. The risks, benefits and alternatives to surgery were discussed with the patient prior to proceeding. Risks discussed included, but were not limited to, failure to relieve pain, leg length discrepancy, dislocation, stiffness, infection, nerve damage, deep venous thrombosis, pulmonary embolism, stroke, coma, heart attack, permanent paralysis and , as well as the potential need for eventual revision of the prosthetic. Surgeon: Cindy Hodgson Tube Former Operator: Kane Hernandez Anesthesia Type: General and Spinal Operative Notes Findings: Severe right hip OA, adequate stability, adequate bone Closure Type: primary Specimen(s): none sent Prosthetic devices, grafts, tissues, transplants, or devices: Hodgson and nephew 56 R3, neutral poly liner,one 6.5 mm screw, polar stem size 2 lateralized, 36+ 0 Estimated Blood Loss (mL): 250 Blood products transfused: none Procedure in detail: The patient was brought to the operating room. Patient was carefully positioned in the supine position. Time-out was performed and antibiotics were given. Anesthesia was induced. He was positioned in the on the table in order to allow hyperextension of the hip. The right lower extremity was prepped and draped in a standard sterile fashion. An anterior right hip incision was made 1 fingerbreadth lateral to the anterior superior iliac spine and extended distally towards the greater trochanter. Dissection was carried out through skin and subcutaneous tissues. Superficial hemostasis was achieved. The fascia over the tensor fascia estella was defined and incised with a knife. Two Allis clamps were used to grasp the fascia. Tensor fascia estella was retracted laterally. A gelpi retractor was placed. Dissection was carried out down along the neck. The circumflex vessels were carefully identified and cauterized with the Aqua Mantis. The PA was used during the procedure was essential for intraoperative retraction and safe implantation of the components. There was good visualization of the femoral neck. A Cobra was placed superior to the neck and the gluteus fibers were carefully stripped from that superior aspect of the capsule. A 2nd retractor was placed along the inferior aspect of the neck. The rectus insertion along the capsule was partially released. A 3rd retractor that was then gently placed over the rim of the acetabulum under the rectus. Capsule was carefully incised and released from the intertrochanteric line circumferentially superior to the mid sagittal line and inferiorly to the mid sagittal line until the lesser trochanter was palpable. A tag stitch was placed both in the superior and inferior limb of the capsular insertion. Along the acetabulum capsule was also released up to the mid sagittal 12:00 position. A portion of the labrum was resected. A saw was used to perform an osteotomy at the level of the intertrochanteric line and the junction of the superior femoral neck leaving approximately 1 finger breath of residual inferior neck above the lesser trochanter. A 2nd cut was made along the femoral neck at the base of the head and a napkin ring of neck was removed. Corkscrew was placed in the femoral head and the head was removed without difficulty. Retractors were then repositioned around the acetabulum. Residual labrum was resected and additional osteophytes were removed. A reamer that was 4 mm below the templated size was placed by hand in the acetabulum and it was reamed to centralize the acetabulum. It was then reamed up to 2 under the templated size and fluoroscopy was brought in to confirm the position of the reaming and depth of reaming. I reamed 1 under the anticipated size. A trial cup was placed and noted that it was appropriately sized and fluoroscopy confirmed position and depth. The component was open and inserted without difficulty fluoroscopic imaging was used to confirm that the cup had been adequately seated and was well positioned. It was further stabilized with a single screw. Neutral poly liner was placed. The cup was tested and noted to be stable. Attention was then directed to the femur. The femur was gently hyperextended additional capsular release was performed as needed in order to allow adequate visualization of the proximal femur with elevation of the femur. Patient was placed in a hyperextended slightly adducted position with maximum external rotation. Box osteotome was used to check for any residual neck as well as sclerotic bone along the trochanter. [place] pepper was placed in the femur. Additional broaching was performed. Canal finder was used to determine the alignment of the canal and position. Size 1 broach was placed. The canal was then appropriately broached up to the templated size as long as there was adequate stability of the broach and serial advancement of the broach without excessive impingement. Specific attention was directed at avoiding varus attempting to direct the distal aspect of the broach more anteriorly and avoiding excessive anteversion. Trial reduction showed acceptable range of motion, good stability, no posterior impingement, bahai of leg length and appropriate lateral shuck. I also hyperflexed the hip and checked that there was no impingement anteriorly and there was good stability with flexion, adduction and internal rotation. Marcaine and Exparel 266 mg for postoperative pain management were injected. The stem was placed without difficulty. Repeat trial reduction and x-ray showed acceptable overall position, length, and no evidence of the femoral fracture. Final head was placed. Wound was meticulously irrigated with normal saline. The hip was reduced and additional Exparel and Marcaine were injected. The capsule was closed with interrupted nonabsorbable sutures. The fascia of the tensor was closed with interrupted and running Vicryl. No drain was placed. Any tensor fascia estella muscle that appeared to be contused or injured which was a minimal amount was carefully resected. Capsule around the tensor was injected with Exparel and Marcaine. The skin was closed with barbed stitches for the subcutaneous tissue and skin. We also used surgical glue. The wound was dressed sterilely. Brief Betadine soak was also used and was meticulously irrigated with normal saline. Patient was transferred to recovery room in satisfactory condition. Complications: none Post-operative Condition: stable Disposition: Acute Care Plan for aftercare: The patient will be maintained on a standard total hip replacement protocol with weight bearing as tolerated and anterior hip precautions. The patient will receive Eliquis starting tomorrow p.m. and sequential compression devices for DVT prophylaxis. The patient will be discharged home when safe for the home environment.
[2024-11-03] MEDS: CELECOXIB 200 MG CAPSULE PO (11:50)
[2024-11-03] MEDS: GABAPENTIN 100 MG CAPSULE PO (11:50)
[2024-11-03] MEDS: ACETAMINOPHEN 325 MG TABLET 975 MG PO (11:50)
[2024-11-03] MEDS: CEFAZOLIN 2 GM/100 ML PREMIX 100 ML IV ×2 (12:10→21:52)
--- NOTE | 2024-11-03 12:28 | SUR.OPER ---
Supine on padded [place] table with bilateral legs secured in padded positioning boots and suspended in positioning spars, operative leg in traction per surgeon. Head on one pillow. Arm on non-operative side secured on padded armboard <90 degrees abduction. Arm on operative side padded and resting across chest then secured with tape over sheet. Padded perineal post in place per surgeon.
[2024-11-03] MEDS: BUPIVACAINE 0.25% (PF) 60 ML, EPINEPHrine 0.3 MG INJ (12:35)
[2024-11-03] MEDS: BUPIVACAINE LIPOSOME 266 MG/20 ML VIAL INJ (12:35)
[2024-11-03] MEDS: TRANEXAMIC ACID 1,000 MG VIAL 1000 MG INJ ×2 (12:35→13:49)
[2024-11-03] MEDS: LACTATED RINGERS 1,000 ML 100 ML IV (16:28)
--- NOTE | 2024-11-03 16:32 | PT.IIE ---
Current Diagnoses Unilateral primary osteoarthritis, right hip (11/03/24) Surgery Performed Operation Date: 11/03/24 10:45 Actual Procedures p Total Hip Arthroplasty/Anterior Approach(Right) - Cindy Hodgson MD Surgical History (Last Updated 10/18/24 @ 13:24 by Lorraine Brooks, RN) History of cholecystectomy History of surgical removal of pilonidal cyst Hx of bilateral cataract extraction Hx of tonsillectomy Medical History (Last Updated 10/19/24 @ 09:24 by Lorraine Brooks, RN) Afib CKD (chronic kidney disease) Diabetes HLD (hyperlipidemia) Hypertension Neuropathy Osteoarthritis Skin cancer Sleep apnea Physical Therapy Inpatient Evaluation/Re-Eval M1 PT/OT-IP Prior Functional Status Start: 11/03/24 15:43 Freq: NEEDED Status: Active Protocol: Document 11/03/24 15:48 MB (Rec: 11/03/24 16:32 MB [id number]) Medical Review Prior Functional Status Medical History Reviewed Yes Diet/Fluid Consistency Regular Communication WNLs Mobility and Gait I Activities of Daily Living and IADL's I Social History Household Members family Living Arrangements House Number of Floors (Floors) One Floor Number of Stairs To Enter/Railing? 2-3 platform-type steps with B rails Home Environment Standard Height Toilet,Walk in Shower Home Equipment Straight Cane,Raised Toilet Seat w/Armrests,Grab Bars In Shower Employment Status Retired Additional Social History Comment Pt borrowed walker from the [employer] and it appears to be a pediatric RW and not appropriate for pt M2 PT-IP Current Condition Start: 11/03/24 15:43 Freq: NEEDED Status: Active Protocol: Document 11/03/24 15:48 MB (Rec: 11/03/24 16:32 MB [id number]) Physical Therapy Current Condition Current Condition Evaluation Date 11/03/24 Treatment Diagnosis R anterior hip replacement M3 PT-IP Subjective Start: 11/03/24 15:43 Freq: NEEDED Status: Active Protocol: Document 11/03/24 15:48 MB (Rec: 11/03/24 16:32 MB [id number]) Subjective Physical Therapy Visit Type Type Initial Evaluation Visit Start Time 15:48 Visit Stop Time 16:20 Notes Once moving, pt realizes that he cannot feel his posterior legs/glutes well post-op at this time (spinal given) Number of AGRICULTURAL SCIENCES PROFESSOR Visits 0 Physical Therapy Visit Comments Patient Comments Pt is agreeable to PT Therapy Pain Assessment Pain When Pain Assessed At Rest Pain Present Pain Present Denied Pain M4 PT-IP Mobility and Gait Start: 11/03/24 15:43 Freq: NEEDED Status: Active Protocol: Document 11/03/24 15:48 MB (Rec: 11/03/24 16:32 MB [id number]) PT-Bed Mobility Assessment Supine to Sit Supine to Sit Contact Guard Assistance,1 Person Assistance,Head of Bed Elevated,Bedrails Scooting Scooting to Edge of Bed Contact Guard Assistance PT-Transfer Assessment Sit to and From Stand Sit to and from Stand Minimal Assistance,1 Person Assistance,Use of Upper Extremities Equipment Transfer Assistive Device Gait Belt,Front Wheeled Walker Orthotic/Prosthetic Devices or Brace: No Transfers Transfer Destination Chair Transfer Technique Stepping Transfer Ability Level of Assist Minimal Assistance,1 Person Assistance,Use of Upper Extremities Comments Mobility Comments Pt with posterior LOB, lifts up on walker and min A to maintain balance. BP does not drop with supine to sit and is taken in LUE: hook lying 169/ 68, 53; standing 160/52, 60. Gait Assessment Gait Gait Assistance Required: Minimum Assistance Distance (Feet) 2 Able to Maintain Weight Bearing Status Yes During Gait Assistive Devices Assistive Device Gait Belt,Front Wheeled Walker Orthotic/Prosthetic Devices or Brace: No Gait Deviations General Gait Pattern Antalgic,Decreased Stride Length,Decreased Feet Clearance,Step-to Gait Factors Limiting Gait Function Factors Limiting Gait Function Decreased Activity Tolerance, Decreased Sensation,Decreased Strength,Difficulty Following Directions,Incoordination,Poor Balance,Poor Safety Awareness Comments Gait Comments One episode LOB and then PT assists with moving walker and cueing pt, cues initially for step-to gait and picking up feet when turning PT-Balance Assessment Sitting Balance and Reactions Static Sitting Balance Ability Good Dynamic Sitting Balance Ability Fair Standing Balance and Reactions Static Standing Balance Ability Fair Dynamic Standing Balance Ability Poor Device Used RW M5 PT-IP Objective Assessments Start: 11/03/24 15:43 Freq: NEEDED Status: Active Protocol: Document 11/03/24 15:48 MB (Rec: 11/03/24 16:32 MB [id number]) Orientation Orientation/Cognition Level of Alertness Alert Orientation Name,Age,Birthday,Month,Date, Year,Day of Week,Place, Situation Language Function Ability No Deficits Noted Safety Awareness Decreased Safety Awareness Memory Description No Deficits Noted Gross Range of Motion Upper Extremity ROM Impairments Defer to OT Lower Extremity ROM Assessment Right Impaired Impairments Decreased DF and great toe extension compared to the left and right hip appears weak and stiff with attempted HS Strength Lower Extremity Strength Assessment Right Impaired Coordination Assessment Gross Coordination Gross Coordination Impaired Sensation Assessment Sensation Gross Sensation Right LE Impaired,Left LE Impaired Sensation Description Numbness Muscle Tone Comments Muscle Tone Comments B PFs with increased tension, greater on the right M6 PT-IP Treatment Start: 11/03/24 15:43 Freq: NEEDED Status: Active Protocol: Document 11/03/24 15:48 MB (Rec: 11/03/24 16:32 MB [id number]) Physical Therapy Treatment Exercises Exercises Ankle Pumps,Gluteal Sets,Quad Sets,Heel Slides Education Education Provided Precautions,Post-Op Packet, Safety Other Treatments Other Treatment Performed Ed pt in no hyperextension M7 PT-IP Assessment and Plan Start: 11/03/24 15:43 Freq: NEEDED Status: Active Protocol: Document 11/03/24 15:48 MB (Rec: 11/03/24 16:32 MB [id number]) PT Summary Assessment and Plan Potential Rehabilitation Potential Good Status of Condition at Evaluation Evolving Summary Impairments ROM,Strength,Balance, Coordination,Sensation,Bed Mobility,Transfers,Gait, Activity Tolerance Progress Towards Goals Progressing Toward Goals Assessment Summary Pt is an 84 y/o male presenting with increased tension right PFs compared to left that he states is baseline and he realizes he has numbness in B gluteal area post-op with spinal once he gets to EOB. He is not orthostatic and requires cues and CGA for bed mobility and min A for transfers and stepping to chair with RW. Recommend up to chair for meals with nsg and progress to up to BR with nsg and RW. He will need a RW for home use. He plans to d/c home with family support. Goals Bed Mobility Goal Independent Transfer Goal Independent,Front Wheeled Walker Gait Goal Independent,Front Wheel Walker Gait Distance 150 Other Goals Pt will ascend and descend 3 steps with B rail and no more than CGA to allow safe home entrance. Days to Meet Goals 3 Frequency of Treatment Frequency Of Treatment Twice a Day Treatment Plan Physical Therapy Treatment Plan Bed Mobility Training,Transfer Training,Gait Training, Therapeutic Exercise,Balance Retraining,Post Op Education, Discharge Planning,Hot or Cold Pack,Neuromuscular Re-ed, Coordination Retraining,Manual Therapy Precautions Other Precautions No hyperextension right hip Weight Bearing Status Weight Bearing Status Weight Bear as Tolerated Recommendations To Nursing Amount of Assist Needed 1 Person Assist Discharge Recommendations PT Discharge Recommendations Home with Assistance, Outpatient PT Equipment Needed for Home Before RW set for 5'9 for d/c Discharge Transportation Needs at Discharge Private Vehicle
[2024-11-03] MEDS: OXYCODONE IR 5 MG TABLET PO ×2 (17:43→21:54)
--- NOTE | 2024-11-03 19:07 | PC.NURSE ---
Pt up to floor around 1500, no void as of yet. Dressing to r.anterior hip is cdi, given one percolone for pain and helpful.
[2024-11-03] MEDS: INSULIN GLARGINE 100 UNIT/ML 3ML PEN 25 UNIT SUBCUT (21:53)
[2024-11-03] MEDS: LOSARTAN 50 MG TABLET PO (21:53)
[2024-11-03] MEDS: DOCUSATE 100 MG CAPSULE PO (21:53)
[2024-11-03] MEDS: ATORVASTATIN 20 MG TABLET PO (21:53)
[2024-11-03] MEDS: carvediloL 3.125 MG TABLET PO (21:53)
[2024-11-04] VITALS: BP 161/55; PULSE 53; RESP 20; TEMP 36.6; O2SAT 97
[2024-11-04 04:00] VITALS: BP 128/54; PULSE 49; RESP 20; TEMP 36.1; O2SAT 99
[2024-11-04] MEDS: CEFAZOLIN 2 GM/100 ML PREMIX 100 ML IV (04:10)
[2024-11-04 07:13] LABS: Hematocrit 39.6 % (41-53); Hemoglobin 13.6 g/dL (13.5-17.5)
[2024-11-04 08:00] VITALS: BP 169/59; PULSE 60; RESP 24; TEMP 36.6; O2SAT 99
--- NOTE | 2024-11-04 08:04 | PC.NURSE ---
Patients aquacel dressing is cdi, patient will have some breakfast and then work with physical therapy. Blood sugar 82, no insulin needed. Will offer patient pain medication.
[2024-11-04] MEDS: LORATADINE 10 MG TABLET PO (08:16)
[2024-11-04] MEDS: GABAPENTIN 100 MG CAPSULE PO (08:16)
[2024-11-04] MEDS: OXYCODONE IR 5 MG TABLET PO ×2 (08:16→11:17)
[2024-11-04] MEDS: EZETIMIBE 10 MG TABLET PO (08:18)
[2024-11-04] MEDS: DOCUSATE 100 MG CAPSULE PO (08:18)
[2024-11-04] MEDS: CHOLECALCIFEROL (VITAMIN D3) 1,000 UNIT TABLET 1000 UNIT PO (08:18)
--- NOTE | 2024-11-04 08:21 | PM.DS.1 ---
History of Present Illness History of Present Illness Date Patient Seen: 11/04/24 Time Patient Seen: 08:22 Chief complaint: Right Total Hip Arthroplasty/Anterior Narrative: The patient has had progressively worsening right hip pain with radiographic changes consistent with arthritis. Non-operative management has failed and the patient has requested total hip replacement. The risks, benefits and alternatives to surgery were discussed with the patient prior to proceeding. Risks discussed included, but were not limited to, failure to relieve pain, leg length discrepancy, dislocation, stiffness, infection, nerve damage, deep venous thrombosis, pulmonary embolism, stroke, coma, heart attack, permanent paralysis and , as well as the potential need for eventual revision of the prosthetic. Discharge Providers Provider Discharge Date: 11/04/24 Primary care physician: Flaquito Sarmiento MD Consults: 11/03/24 06:00 Consult to Anesthesiology Routine Comment: Consulting Provider: Anesthesiologist Reason for consultation: Regional block for post operative pain control Has provider been notified: No 11/03/24 14:49 Consult to Discharge Planning Routine Comment: Consult to Occupational Therapy Evaluate & Treat Comment: Physician Instructions: Evaluate and treat Consult to Physical Therapy Evaluate & Treat Comment: Physician Instructions: post op HERIBERTO protocol Discharge provider: Júnior Kearney PA-C Summary Status at Discharge Cognitive/behavioral status at discharge: oriented Functional status at discharge: uses cane/walker Overall status at discharge: patient is back to baseline Time Spent with Patient Time spent: Less than 30 minutes Exam Vital Signs (past 8 hours): - 11/04/24 04:00 Temperature 97.0 F L Pulse Rate 49 L Respiratory Rate 20 Blood Pressure 128/54 L Pulse Oximetry 99 Oxygen Flow Rate 0 Oxygen Delivery Method Room Air Oxygen Flow Rate 0 Narrative Exam Narrative: 5/5 strength in hip flexors, quadriceps, hamstrings, DF, PF, EHL bilaterally. Sensation to light touch intact throughout BLE. Calves soft, compressible, nontender. ?Dressing placed intraoperatively CDI. Resp Effort & Inspection: normal respiratory effort and able to speak in complete sentences Objective Labs 11/04/24 06:15 Labs: Laboratory Results - last 24 hr 11/04/24 06:15 Hgb 13.6 Hct 39.6 L PFSH Medical History (Updated 10/19/24 @ 09:24 by Lorraine Brooks RN) CKD (chronic kidney disease) Skin cancer Osteoarthritis HLD (hyperlipidemia) Afib Sleep apnea Neuropathy Hypertension Diabetes Surgical History (Updated 10/18/24 @ 13:24 by Lorraine Brooks RN) History of surgical removal of pilonidal cyst Hx of tonsillectomy Hx of bilateral cataract extraction History of cholecystectomy Social History household members: none Smoking Status: Never smoker alcohol intake: current Discharge Assessment & Plan Assessment and Plan Assessment: status post right HERIBERTO Plan of Treatment: Discharge to home. Anterior hip precautions. Ambulate with assistive devices as needed. Eliquis 5 mg b.i.d. for DVT prevention. Baseline pain control with acetaminophen 500 mg q.4 hours PRN. Patient has already been prescribed oxycodone 5 mg q.4 hours PRN and Zofran 4 mg Q 8 hours prn and has not met home. Initiate postoperative physical therapy next 5-10 days. Follow up in clinic in 2 weeks for wound check. Discharge Plan Discharge Plan Patient Disposition: Home Discharge orders & Medications Discharge Orders: Discharge (Order); Ordered 11/04/24 Ordered By: Júnior Kearney Prescriptions: Continued Jardiance 25 mg tablet 25 mg PO DAILY (DME) pen needle, diabetic [BD Anyi 2nd Gen Pen Needle] 32 gauge x 5/32 needle See Rx Instructions .ROUTE .MEDSUPPLY Qty: 1200 Patient Comments: [NO ORIGINAL SIG] Rx Instructions: As directed Eliquis 5 mg tablet 5 mg PO BID gabapentin 100 mg capsule 100 mg PO DAILY desonide 0.05 % cream 1 applic topical PRN PRN (Reason: Rosacea) carvedilol 3.125 mg tablet 3.125 mg PO BID simvastatin [Zocor] 40 MG tablet 40 mg PO HS Qty: 0 losartan 50 MG tablet 50 mg PO BID Qty: 0 fexofenadine 180 MG tablet 180 mg PO Q DAY Qty: 0 hydrochlorothiazide 25 mg tablet 1 tab PO DAILY ezetimibe 10 mg tablet 1 tab PO DAILY cholecalciferol (vitamin D3) [Vitamin D3] 25 mcg (1,000 unit) Tablet 25 mcg PO DAILY tirzepatide 7.5 mg/0.5 mL Pen Injector 7.5 mg SUBCUT QWEEK Patient Comments: Every Thursday insulin glargine [Lantus Solostar U-100 Insulin] 100 unit/mL (3 mL) Insulin Pen 25 - 30 unit SUBCUT BEDTIME Jardiance 25 mg tablet 25 mg PO DAILY Follow up/Referrals: Flaquito Sarmiento MD [Primary Care Provider] - Diet/Activity/Treatments Diet: Diet as Tolerated Activity: Ambulate multiple times a day. Use a cane or walker as needed. Full weight on leg. Cold/Heat Therapy: Use ice multiple times a day. Skin/Wound/Dressing Care Skin care: Leave dressing on. Okay to shower Report to your healthcare provider any signs of infection, such as:: chills, fever, night sweats, unusual drainage and unusual redness Dressing: Leave dressing in place until follow up in office. No bathing or otherwise soaking incision. Call the office if the dressing becomes saturated inside. Visit Report/Discharge Packet Instructions: DI for Hip Replacement Stand Alone Forms: Patient Portal/API, Surgery Discharge Discharge Data Primary Care Provider: Flaquito Sarmiento Attending Provider: Cindy Hodgson VTE Deep Vein Thrombosis/Pulmonary Embolism Present on Admission: No
--- NOTE | 2024-11-04 08:46 | PT.IPTN ---
Current Diagnoses Unilateral primary osteoarthritis, right hip (11/03/24) Surgery Performed Operation Date: 11/03/24 10:45 Actual Procedures p Total Hip Arthroplasty/Anterior Approach(Right) - Cindy Hodgson MD Physical Therapy Treatment Note M2 PT-IP Current Condition Start: 11/03/24 15:43 Freq: NEEDED Status: Active Protocol: Document 11/03/24 15:48 MB (Rec: 11/03/24 16:32 MB [id number]) Physical Therapy Current Condition Current Condition Evaluation Date 11/03/24 Treatment Diagnosis R anterior hip replacement M3 PT-IP Subjective Start: 11/03/24 15:43 Freq: NEEDED Status: Active Protocol: Document 11/04/24 09:22 TS (Rec: 11/04/24 09:42 TS [id number]) Subjective Physical Therapy Visit Type Type Treatment Note Visit Start Time 08:46 Visit Stop Time 09:12 Number of CINDER CRANE OPERATOR Visits 1 Physical Therapy Visit Comments Patient Comments Pt reports can't move RLE, pain is 4/10. He is agreeable to PT. Therapy Pain Assessment Pain When Pain Assessed At Rest Pain Present Pain Present Pain Reported M4 PT-IP Mobility and Gait Start: 11/03/24 15:43 Freq: NEEDED Status: Active Protocol: Document 11/04/24 09:22 TS (Rec: 11/04/24 09:42 TS [id number]) PT-Bed Mobility Assessment Supine to Sit Supine to Sit Minimal Assistance,Head of Bed Elevated,Bedrails Scooting Scooting to Edge of Bed Standby Assistance PT-Transfer Assessment Sit to and From Stand Sit to and from Stand Standby Assistance,Use of Upper Extremities Equipment Transfer Assistive Device Gait Belt,Front Wheeled Walker Comments Mobility Comments Supine to sit Jelani for RLE assistance. Pt scoots to EOB SBA. STS with FWW SBA, pt has good standing balance. He ambulates ~50 SBA in the room. Performs steps x3 with B handrail assist. PT was left in the hcair, all needs met. Gait Assessment Gait Gait Assistance Required: Standby Assistance Distance (Feet) 50 Able to Maintain Weight Bearing Status Yes During Gait Assistive Devices Assistive Device Gait Belt,Front Wheeled Walker Orthotic/Prosthetic Devices or Brace: No Gait Deviations General Gait Pattern Antalgic,Decreased Stride Length,Decreased Feet Clearance,Step-to Gait Factors Limiting Gait Function Factors Limiting Gait Function Decreased Activity Tolerance, Decreased Sensation,Decreased Strength,Difficulty Following Directions,Incoordination,Poor Balance,Poor Safety Awareness Stair Climbing Assessment Evaluation Level of Assist On Stairs Contact Guard Assistance Devices Stair Climbing Assistive Devices Left Railing,Right Railing Technique/Endurance Stair Climbing Direction Ascend and Descend Stair Climbing Technique Step to Step Number of Steps Climbed 3 PT-Balance Assessment Sitting Balance and Reactions Static Sitting Balance Ability Good Dynamic Sitting Balance Ability Fair Standing Balance and Reactions Static Standing Balance Ability Fair Dynamic Standing Balance Ability Fair Device Used FWW M5 PT-IP Objective Assessments Start: 11/03/24 15:43 Freq: NEEDED Status: Active Protocol: Document 11/03/24 15:48 MB (Rec: 11/03/24 16:32 MB [id number]) Orientation Orientation/Cognition Level of Alertness Alert Orientation Name,Age,Birthday,Month,Date, Year,Day of Week,Place, Situation Language Function Ability No Deficits Noted Safety Awareness Decreased Safety Awareness Memory Description No Deficits Noted Gross Range of Motion Upper Extremity ROM Impairments Defer to OT Lower Extremity ROM Assessment Right Impaired Impairments Decreased DF and great toe extension compared to the left and right hip appears weak and stiff with attempted HS Strength Lower Extremity Strength Assessment Right Impaired Coordination Assessment Gross Coordination Gross Coordination Impaired Sensation Assessment Sensation Gross Sensation Right LE Impaired,Left LE Impaired Sensation Description Numbness Muscle Tone Comments Muscle Tone Comments B PFs with increased tension, greater on the right M6 PT-IP Treatment Start: 11/03/24 15:43 Freq: NEEDED Status: Active Protocol: Document 11/04/24 09:22 TS (Rec: 11/04/24 09:42 TS [id number]) Physical Therapy Treatment Education Education Provided Precautions,Post-Op Packet, Safety M7 PT-IP Assessment and Plan Start: 11/03/24 15:43 Freq: NEEDED Status: Active Protocol: Document 11/04/24 09:22 TS (Rec: 11/04/24 09:42 TS [id number]) PT Summary Assessment and Plan Potential Rehabilitation Potential Good Summary Impairments ROM,Strength,Balance, Coordination,Sensation,Bed Mobility,Transfers,Gait, Activity Tolerance Progress Towards Goals Progressing Toward Goals Assessment Summary Andres is making good progress with his mobility. He is SBA for STS and for gait of ~50'. He performs steps x3 with B handrail assist with ease. He does require some assistanc emoving RLE in bed. Pt has daughter and sister to help him at home. PT is recommending home with assist. Goals Bed Mobility Goal Independent Transfer Goal Independent,Front Wheeled Walker Gait Goal Independent,Front Wheel Walker Gait Distance 150 Other Goals Pt will ascend and descend 3 steps with B rail and no more than CGA to allow safe home entrance. Days to Meet Goals 3 Frequency of Treatment Frequency Of Treatment Twice a Day Treatment Plan Physical Therapy Treatment Plan Bed Mobility Training,Transfer Training,Gait Training, Therapeutic Exercise,Balance Retraining,Post Op Education, Discharge Planning,Hot or Cold Pack,Neuromuscular Re-ed, Coordination Retraining,Manual Therapy Precautions Other Precautions No hyperextension right hip Weight Bearing Status Weight Bearing Status Weight Bear as Tolerated Recommendations To Nursing Amount of Assist Needed Standby Assistance,1 Person Assist Discharge Recommendations PT Discharge Recommendations Home with Assistance, Outpatient PT Equipment Needed for Home Before RW set for 5'9 for d/c Discharge Transportation Needs at Discharge Private Vehicle
--- NOTE | 2024-11-04 10:43 | OT.IP.EVAL ---
Addendum entered and electronically signed by Valencia Smith OT 11/04/24 11:04: esign Original Note: Current Diagnoses Unilateral primary osteoarthritis, right hip (11/03/24) Surgery Performed Operation Date: 11/03/24 10:45 Actual Procedures p Total Hip Arthroplasty/Anterior Approach(Right) - Cindy Hodgson MD Past Medical History (Last Updated 10/19/24 @ 09:24 by Lorraine Brooks, RN) Afib CKD (chronic kidney disease) Diabetes HLD (hyperlipidemia) Hypertension Neuropathy Osteoarthritis Skin cancer Sleep apnea Surgical History (Last Updated 10/18/24 @ 13:24 by Lorraine Brooks RN) History of cholecystectomy History of surgical removal of pilonidal cyst Hx of bilateral cataract extraction Hx of tonsillectomy Occupational Therapy Inpatient Evaluation/Re-Eval M1 PT/OT-IP Prior Functional Status Start: 11/03/24 15:43 Freq: NEEDED Status: Active Protocol: Document 11/04/24 09:57 [facility] (Rec: 11/04/24 11:01 [facility] [id number]) Medical Review Prior Functional Status Medical History Reviewed Yes Diet/Fluid Consistency Regular Communication WNLs Mobility and Gait I Activities of Daily Living and IADL's I Social History Household Members none Living Arrangements House Number of Floors (Floors) One Floor Number of Stairs To Enter/Railing? 3 steps with bilateral rails. Home Environment Standard Height Toilet,Walk in Shower Home Equipment Straight Cane,Raised Toilet Seat w/Armrests,Grab Bars In Shower Employment Status Retired Additional Social History Comment Pt borrowed walker from the [employer] and it appears to be a pediatric RW and not appropriate for pt M2 OT-IP Current Condition Start: 11/04/24 10:45 Freq: Status: Active Protocol: Document 11/04/24 09:57 [facility] (Rec: 11/04/24 11:01 [facility] [id number]) Occupational Therapy Current Condition Current Condition Evaluation Date 11/04/24 Treatment Diagnosis S/P R HERIBERTO Diagnosis Onset Date 11/03/24 Post Operative Precautions Other Precautions NO excessive hyperextension and excessive hip external rotation M3 OT- IP Subjective and Pain Start: 11/04/24 10:45 Freq: Status: Active Protocol: Document 11/04/24 09:57 [facility] (Rec: 11/04/24 11:01 [facility] [id number]) OT- Subjective Occupational Therapy Visit Type Type Initial Evaluation Visit Start Time 09:57 Visit Stop Time 10:43 Occupational Therapy Visit Comments Patient Comments Pt not wanting to shower but agreed to get dressed. Patient/Caregiver Goals To go home. OT Pain Assessment Pain When Pain Assessed During Mobility Pain Present Pain Present Pain Reported Location Right Hip Intensity 4 Scale Used Numeric (0 - 10) M4 OT- IP ADL's Start: 11/04/24 10:45 Freq: Status: Active Protocol: Document 11/04/24 09:57 [facility] (Rec: 11/04/24 11:01 [facility] [id number]) OT [id number] General Evaluation Self-Feeding Ability Independent OT ADL-Grooming General Evaluation Grooming Ability Independent OT ADL-Oral Care General Eval Oral Care Ability Independent OT ADL-Dressing General Eval Upper Body Dressing Ability Minimal Assistance Lower Body Dressing Ability Minimal Assistance Areas Needing Assistance Pull-Over Shirt,Socks Comments OT Dressing Comments Able to practice use of church supervisor and sock aid. Educated to sherry the RLE first and take out last. OT ADL-Toileting Comments OT Toileting Comments Educated may be easier to stand to wipe and use of wet ones. Suggested to take the urinal home. OT ADL-Bathing Comments OT Bathing Comments Pt not wanting to shower. Spoke of having shower chair or use of FWW in the shower with assist as the shower is small. Educated to inspect and cover the dressing for showering needs. M5 OT- IP IADL's Start: 11/04/24 10:45 Freq: Status: Active Protocol: Document 11/04/24 09:57 [facility] (Rec: 11/04/24 11:01 [facility] [id number]) OT-Instrumental Activities of Daily Living Home Safety Awareness Awareness of Need for Assistance at Home Good Awareness Ability to Problem Solve Emergency Able to Problem Solve Situations Home Safety Comments Pt's family to assist pt at home for all needs. Medication Management Medication Management No Deficits Identified Medication Management Comments TO have supervision as needed. Money Management Money Management No Deficits Identified Money Management Comments TO have supervision as needed. Meal Preparation Meal Preparation Comments Pt to have assist. Escapement Matcher Escapement Matcher Comments Pt to have assist. M6 OT- IP Functional Cognition Start: 11/04/24 10:45 Freq: Status: Active Protocol: Document 11/04/24 09:57 [facility] (Rec: 11/04/24 11:01 [facility] [id number]) Cognitive Factors Limiting Selfcare Function Cognitive Ability Level of Alertness Alert Patient Orientation Name,Age,Birthday,Month,Date, Year,Day of Week,Place, Situation Attention Span Ability Capable of Focused Attention, Capable of Sustained Attention Ability to Follow Commands Able to Follow One Step Commands Memory Description No Deficits Noted Cognitive Comments Cognitive Assessment Comments Pt able to follow commands for his hip precautions and pt's family also having good understanding. OT- Vision and Hearing OT- Hearing Assessment OT- Hearing Assessment WFL OT- Vision Assessment Visual Acuity Glasses All The Time Visual Attentiveness WFL Occular Pursuits WFL M7 OT- IP Mobility and Balance Start: 11/04/24 10:45 Freq: Status: Active Protocol: Document 11/04/24 09:57 [facility] (Rec: 11/04/24 11:01 [facility] [id number]) OT-Transfer Assessment Sit to and From Stand Sit to and from Stand Standby Assistance Comments Mobility Comments SBA to stand to the FWW. OT- Balance Assessment Sitting Balance and Reactions Static Sitting Balance Ability Normal Dynamic Sitting Balance Ability Good Standing Balance and Reactions Static Standing Balance Ability Good Dynamic Standing Balance Ability Good M8 OT- IP Objective Assessments Start: 11/04/24 10:45 Freq: Status: Active Protocol: Document 11/04/24 09:57 [facility] (Rec: 11/04/24 11:01 [facility] [id number]) OT Gross Range of Motion Upper Extremity Range of Motion Assessment Within Functional Limits OT Strength Upper Extremity Strength Assessment Within Functional Limits M9 OT- IP Assessment and Plan Start: 11/04/24 10:45 Freq: Status: Active Protocol: Document 11/04/24 09:57 [facility] (Rec: 11/04/24 11:01 [facility] [id number]) OT Summary Assessment and Plan Potential Rehabilitation Potential Excellent Analytic Complexity at Evaluation Low Summary OT Impairments Pain,Balance,Functional Mobility,Dressing,Toileting, Bathing,Toilet Transfers, Shower Transfers Progress Towards Goals Progressing Toward Goals Assessment Summary Pt Low complexity and main barriers are pain, needing assist for ADL needs. Pt's family present at the end of the session and has good understanding to be able to assist pt for all needs. FWW issued. Pt to have outpt OT. Goals Dressing Goal Independent,Long Handled Shoe Horn,Assistant Guest Services Manager,Sock Aid Toileting Goal Independent Bathing Goal Standby Assistance Toilet Transfer Goal Independent Shower Transfer Goal Standby Assistance Days to Meet Goals 3 Frequency of Treatment Frequency Of Treatment Once a Day Treatment Plan OT Treatment Plan ADL Training,Functional Mobility,Patient/Family Education,Discharge Planning Discharge Recommendations OT Discharge Recommendations Home with Assistance, Outpatient PT Home Equipment Needs Shower chair
== END 2024-11-04 11:32 | disposition home or self-care (01) ==
LOC: OR 08:07 → AC 08:07
PROVIDERS: Family Provider Internal Medicine; PCP Internal Medicine; Referring Provider Orthopaedic Surgery; Visit Provider Orthopaedic Surgery
PROC: (CPT 27130; principal; 2024-11-03 10:45)
DX: M16.11 Unilateral primary osteoarthritis, right hip (principal); I48.91 Unspecified atrial fibrillation; I10 Essential (primary) hypertension; E11.9 Type 2 diabetes mellitus without complications; G47.30 Sleep apnea, unspecified; M25.751 Osteophyte, right hip
CPT/HCPCS: 27130; 73502; 76000; 82962; 85014; 85018; 97116; 97161; 97165; 97530; 97535; C1776; C9290; J0171; J0690; J1171; J2405; J2704